=== PATIENT | female | born 1995 | race Caucasian/White ===

== ENCOUNTER → 2024-11-20 07:18 | Outpatient (REF) | payer OTHER, SELFPAY | LOC: HWRAD 07:18 | PROVIDERS: ATTENDING PHYSICIAN Physician Assistant Medical; FAMILY PHYSICIAN Nurse Practitioner | DX: J31.0 Chronic rhinitis (principal); J32.0 Chronic maxillary sinusitis | CPT/HCPCS: 70486 ==